=== PATIENT | female | born 1960 | race Caucasian/White ===

== ENCOUNTER 2025-02-28 09:43 | Emergency (ER) | payer MEDICARE, MEDICAID ==
[2025-02-28 11:02] LABS: Bacteria/HPF 4+ HPF (None Seen); CAUTI Indications for Culture Dysuria,urgency,freq; Glucose, Urine (Dipstick) 300 mg/dL (Negative); Leukocyte 500 Leu/uL (Negative); Protein, Urine (Dipstick) 50 mg/dL (Neg-Trace); Specific Gravity, Urine 1.012 (1.002-1.036); WBC/HPF Greater than 50 HPF (0-3); Yeast-Budding 1+ HPF (None Seen)
[2025-02-28 11:08] LABS: Urine Culture Reflex Yes Yes
[2025-02-28] MEDS ORDERED: Sulfameth/Trimethoprim DS 800-160mg TAB ONE (11:23)
== END 2025-02-28 11:59 | disposition home or self-care (01) ==
LOC: ERS 09:43
DX: N39.0 Urinary tract infection, site not specified (principal); I10 Essential (primary) hypertension; E11.9 Type 2 diabetes mellitus without complications; F17.210 Nicotine dependence, cigarettes, uncomplicated
CPT/HCPCS: 36416; 81001; 87077; 87086; 99283